=== PATIENT | female | born 1935 | race Caucasian/White ===

== ENCOUNTER 2018-03-23 14:00 | Emergency (ER) | payer MEDICAID, MEDICARE ==
[~2018-03-23] VITALS: Ht 157.5 cm; Wt 77.1 kg
--- NOTE | 2018-03-23 14:10 | NUR ---
PT PRESENTS TO ER SENT BY PMD FOR EVALUATION OF L 2ND TOE ULCER WITH SWELLING AND TENDERNESS. NAD NOTED. RESP EVEN UNLABORED. IN ER BED 10.
[2018-03-23 14:48] LABS: BASOPHILS # (AUTO) 0.1 /CMM (0.0-0.2); HEMATOCRIT 42 % (33-45); MEAN CORPUSCULAR HEMOGLOBIN 28 PG (26.0-33.0); NEUTROPHILS # (AUTO) 5.1 /CMM (1.8-8.9)
[2018-03-23 14:58] LABS: CALCIUM, SERUM 9.3 mg/dL (8.5-10.1); CARBON DIOXIDE 26 mmol/L (21-32); CHLORIDE 102 mmol/L (98-107); CREATININE 0.9 mg/dL (0.6-1.3); GLUCOSE 113 mg/dL (74-106); SODIUM SERUM 138 mmol/L (136-145); UREA NITROGEN, BLOOD 22 mg/dL (7-18)
[2018-03-23 15:00] LABS: BASOPHILS % (AUTO) 0.7 % (0.0-2.0); EOSINOPHILS % (AUTO) 5.5 % (0.0-6.0); HEMOGLOBIN 14.1 g/dL (11.5-14.8); LYMPHOCYTES # (AUTO) 2.7 /CMM (0.8-4.8); LYMPHOCYTES % (AUTO) 29.2 % (20.0-44.0); MEAN CORPUSCULAR HGB CONC 34 g/dl (31.0-36.0); MEAN CORPUSCULAR VOLUME 83 fL (82-100); MONOCYTES # (AUTO) 0.9 /CMM (0.1-1.30); MONOCYTES % (AUTO) 10.1 % (2.0-12.0); NEUTROPHILS % (AUTO) 54.5 % (43.0-81.0); PLATELET COUNT (AUTO) 244 /CMM (150-450); RDW COEFFICIENT OF VARIATION 13.9 (11.5-15.0); RED BLOOD CELL COUNT(AUTO) 5.03 MIL/uL (4.0-5.2); WHITE BLOOD COUNT (AUTO) 9.3 K/uL (4.3-11.0)
[2018-03-23 15:05] LABS: ALANINE AMINOTRANSFERASE 29 U/L (12-78); ALBUMIN 3.2 g/dL (3.4-5.0); ALKALINE PHOSPHATASE 104 U/L (46-116); ASPARTATE AMINOTRANSFERASE 21 U/L (15-37); BILIRUBIN,DIRECT 0.1 mg/dL (0.0-0.2); BILIRUBIN,TOTAL 0.3 mg/dL (0.2-1.0); LIPASE 112 U/L (73-393); TOTAL PROTEIN, SERUM 8.1 g/dL (6.4-8.2)
[2018-03-23 15:07] LABS: TROPONIN I < 0.017 ng/mL (0.00-0.056)
[2018-03-23] MEDS ORDERED: ASCO500T9 PO (15:10)
[2018-03-23] MEDS ORDERED: DOCU-141 PO (15:10)
[2018-03-23] MEDS ORDERED: ZINC220C8 PO (15:10)
[2018-03-23] MEDS ORDERED: HYDR-552 PO (15:10)
[2018-03-23] MEDS ORDERED: MAGN400O6 PO (15:10)
[2018-03-23] MEDS ORDERED: MULT-447 PO (15:10)
[2018-03-23] MEDS ORDERED: BISA10SU8 RC (15:10)
[2018-03-23] MEDS ORDERED: RANI150T43 PO (15:10)
[2018-03-23] MEDS ORDERED: ACET-2605 PO (15:10)
[2018-03-23] MEDS ORDERED: ACET-868 PO (15:10)
[2018-03-23] MEDS ORDERED: AMLO5TAB2 PO (15:10)
[2018-03-23] MEDS ORDERED: VANCOMYCIN 1 GM in IV D5W 250 ML IV ONE (15:30)
[2018-03-23 17:06] VITALS: BP 139/68
--- NOTE | 2018-03-23 17:09 | NUR ---
[facility] GAVE REPORT THAT OPT IS COMING BACK WITH PO ABX TO CONTINUE. REPORT GIVEN TO [facility] STAFF. DISCHARGED TO [facility] IN STABLE CONDITION. IV DC'D, PRESSURE DRESSING APPLIED.
== END 2018-03-23 17:09 ==
LOC: ER 14:06
DX: E11.621 Type 2 diabetes mellitus with foot ulcer (principal); L03.032 Cellulitis of left toe; Z60.2 Problems related to living alone
CPT/HCPCS: 36415; 73630; 80048; 80076; 83605; 83690; 84484; 85025; 96365; 99285; A4606; J3370; J7060; Z7610

== ENCOUNTER 2019-01-19 19:24 | Emergency (ER) | payer MEDICAID ==
[~2019-01-19] VITALS: Ht 170.2 cm; Wt 79.4 kg
[~2019-01-19 19:24] MED LIST: ACET-2605 PO; ACET-868 PO; AMLO5TAB9 PO; ASCO500T9 PO; BISA10SU8 RC; DOCU-141 PO; HYDR-4384 PO; MAGN400O6 PO; MULT-447 PO; RANI150T43 PO; ZINC220C8 PO
--- NOTE | 2019-01-19 20:15 | NUR ---
DR. MEYER AT BEDSIDE WT PEDIATRIC PHYSICAL THERAPY ASSISTANT TO EXAMINE PT.
[2019-01-19] MEDS ORDERED: ACETAMINOPHEN ES 500 MG TABLET PO ONE (20:30)
[2019-01-19] MEDS ORDERED: ACETAMINOPHEN ES 500 MG TABLET ONE (21:05)
--- NOTE | 2019-01-19 21:19 | NUR ---
JASVIR CALLED [facility] 0130. #[id number]
--- NOTE | 2019-01-19 21:39 | NUR ---
CALLED [facility] FOR TRASORT ETA OF [id number] WAS GIVEN.
--- NOTE | 2019-01-19 22:20 | NUR ---
[facility] CALLED INFORMING THAT PT WILL BE TRANSFERED BACK. SPOKE TO RENE, ACADEMIC VICE PRESIDENT.
[2019-01-19 22:24] VITALS: BP 150/74
== END 2019-01-19 22:25 ==
LOC: ER 19:31
DX: S39.012A Strain of muscle, fascia and tendon of lower back, initial encounter (principal); S80.01XA Contusion of right knee, initial encounter; E11.40 Type 2 diabetes mellitus with diabetic neuropathy, unspecified; I12.9 Hypertensive chronic kidney disease with stage 1 through stage 4 chronic kidney disease, or unspecified chronic kidney disease; E11.22 Type 2 diabetes mellitus with diabetic chronic kidney disease; N18.9 Chronic kidney disease, unspecified; M19.90 Unspecified osteoarthritis, unspecified site; M81.0 Age-related osteoporosis without current pathological fracture; E78.5 Hyperlipidemia, unspecified; F03.90 Unspecified dementia, unspecified severity, without behavioral disturbance, psychotic disturbance, mood disturbance, and anxiety; Z60.2 Problems related to living alone; Z79.899 Other long term (current) drug therapy; W05.0XXA Fall from non-moving wheelchair, initial encounter; Y93.89 Activity, other specified; Y92.89 Other specified places as the place of occurrence of the external cause; Y99.8 Other external cause status
CPT/HCPCS: 72131-TC; 73564-TC

== ENCOUNTER 2021-08-26 12:43 | Emergency (ER) | payer MEDICAID ==
[~2021-08-26] VITALS: Ht 157.5 cm; Wt 58.5 kg
[~2021-08-26 12:43] MED LIST changes: +AMLO-212 PO; -AMLO5TAB9 PO; +ASCO-352 PO; -ASCO500T9 PO; +BISA10SU11 RC; -BISA10SU8 RC; +RANI-655 PO; -RANI150T43 PO; +ZINC1CAP2 PO; -ZINC220C8 PO
--- NOTE | 2021-08-26 12:53 | NUR ---
bib pa from care facility due to left facial bruise/injury, found on the floor. aaox3, breathing even and non labored, connected to monitor
--- NOTE | 2021-08-26 13:12 | NUR ---
seen by Dr Thomason
--- NOTE | 2021-08-26 13:22 | NUR ---
TAKEN TO CT
--- NOTE | 2021-08-26 15:58 | NUR ---
[facility] CALLED ETA 60-75 MINS PER JOSE D.
--- NOTE | 2021-08-26 16:24 | NUR ---
[facility]
[2021-08-26 16:59] VITALS: BP 145/75
== END 2021-08-26 17:01 | disposition home or self-care (01) ==
LOC: ER 12:58
DX: S00.83XA Contusion of other part of head, initial encounter (principal); E78.5 Hyperlipidemia, unspecified; I12.9 Hypertensive chronic kidney disease with stage 1 through stage 4 chronic kidney disease, or unspecified chronic kidney disease; E11.22 Type 2 diabetes mellitus with diabetic chronic kidney disease; N18.9 Chronic kidney disease, unspecified; I25.10 Atherosclerotic heart disease of native coronary artery without angina pectoris; I25.2 Old myocardial infarction; M81.0 Age-related osteoporosis without current pathological fracture; E11.40 Type 2 diabetes mellitus with diabetic neuropathy, unspecified; M19.90 Unspecified osteoarthritis, unspecified site; Z60.2 Problems related to living alone; Z79.899 Other long term (current) drug therapy; W18.39XA Other fall on same level, initial encounter; Y93.89 Activity, other specified; Y92.89 Other specified places as the place of occurrence of the external cause; Y99.8 Other external cause status
CPT/HCPCS: 70450-TC; 70486-TC; 71045-TC; 72125-TC; 72170-TC